=== PATIENT | female | born 1950 | race Two or more races ===

== ENCOUNTER 2024-04-29 07:06 | Outpatient (CLI) | payer OTHER | END 2024-04-29 07:07 | disposition home or self-care (01) | LOC: NUCLEAR 07:06 | PROVIDERS: ATTEND Obstetrics & Gynecology Gynecologic Oncology | DX: C54.1 Malignant neoplasm of endometrium (principal) | CPT/HCPCS: 78815; A9552 ==

== ENCOUNTER 2024-05-17 09:38 | Outpatient (CLI) | payer OTHER | END 2024-05-17 09:41 | disposition home or self-care (01) | LOC: SONOGRAMA 09:38 | PROVIDERS: ATTEND Pathology Anatomic Pathology & Clinical Pathology | DX: D34 Benign neoplasm of thyroid gland (principal); E06.3 Autoimmune thyroiditis; E04.1 Nontoxic single thyroid nodule ==

== ENCOUNTER 2024-05-24 07:26 | Outpatient (CLI) | payer OTHER | END 2024-05-24 07:27 | disposition home or self-care (01) | LOC: NUCLEAR 07:26 | PROVIDERS: ATTEND Specialist | DX: I20.9 Angina pectoris, unspecified (principal) | CPT/HCPCS: 78452; 93017; A9500 ==